=== PATIENT | male | born 1965 | race Asian ===

== ENCOUNTER 2018-06-24 13:12 | Day surgery (SDC) | payer BC ==
--- NOTE | 2018-06-23 20:52 | GHP ---
[f rep st] PREOP HISTORY AND PHYSICAL DATE OF ADMISSION: 06/24/2018 ADMISSION DIAGNOSIS: Ureteral calculus and renal calculus, right side. HISTORY OF PRESENT ILLNESS: This is a 53-year-old gentleman who has had right ureteral and renal sto ross with having a 15 mm renal stone on the right and several 3 mm stones on the right ureter. At the present time, he is admitted for a ureteroscopic manipulation of stones and attempt at treatment of the renal stones ureteroscopically. PAST MEDICAL HISTORY: Bilateral ureteral calculi. PAST SURGICAL HISTORY: Denied. MEDICATIONS: Tamsulosin. ALLERGIES: None. FAMILY HISTORY: Hypertension. SOCIAL HISTORY: Never consumed alcohol. Never smoked. REVIEW OF SYSTEMS: Negative cardiac, respiratory, GI and endocrine. PHYSICAL EXAM: VITAL SIGNS: On admission in the office, blood pressure is 127/84, heart rate 65 and regular, room air oxygen was 95% saturation. HEAD, EARS, EYES, NOSE, THROAT: Normal. CHEST: Mei r. HEART: Regular rate and rhythm. ABDOMEN: Normal. No organomegaly, rebound or guarding. EXTREM ITIES: Lower extremities are normal. LABORATORY DATA: Urinalysis in the office revealed a specific gravity of 1.020 and a urine hemoglobi n +4 without nitrites. At the present time, he is admitted for the above procedure. Indications, complications, options dis cussed. Written and verbal consent were obtained. /[id number]/MODL
--- NOTE | 2018-06-24 07:43 | PDHPUP ---
History & Physical Update H&P update statement: This history and physical update is based on an assessment of the patient which was completed after admission or registration (within 24 hours), but prior to the surgery/procedure. H&P update: H&P reviewed & patient examined, no change in patient's condition since H&P completed
[2018-06-24] MEDS ORDERED: ceFAZolin 2 GM/DEXTROSE 100 ML IV ONE (13:21)
[2018-06-24] MEDS ORDERED: LIDOCAINE 1% 2 ML INJ ID PRN (13:21)
[2018-06-24] MEDS ORDERED: LR 1,000 ML IV ONE (13:21)
--- NOTE | 2018-06-24 13:41 | PDANEPAE ---
ANE History of Present Illness right ureteral stones and kidney stone. here for lithotripsy ANE Past Medical History - Cardiovascular History Hx Hypertension: No Hx Arrhythmias: No Hx Chest Pain: No Hx Coronary Artery / Peripheral Vascular Disease: No Hx CHF / Valvular Disease: No Hx Palpitations: No - Pulmonary History Hx COPD: No Hx Asthma/Reactive Airway Disease: No Hx Recent Upper Respiratory Infection: No Hx Oxygen in Use at Home: No Hx Sleep Apnea: No Sleep Apnea Screening Result - Last Documented: Negative - Neurologic History Hx Cerebrovascular Accident: No Hx Seizures: No Hx Dementia: No - Endocrine History Hx Diabetes: No - Renal History Hx Renal Disorders: No Renal History Comment: kidney stones - Liver History Hx Hepatic Disorders: No - Neurological & Psychiatric Hx Hx Neurological and Psychiatric Disorders: No - Cancer History Hx Cancer: No - Congenital Disorder History Hx Congenital Disorders: No - GI History Hx Gastrointestinal Disorders: No - Chronic Pain History Chronic Pain: No - Surgical History Prior Surgeries: colonoscopy 2017 ANE Review of Systems Review of Systems: - Exercise capacity METS (RN): 6 METS ANE Patient History - Allergies Allergies/Adverse Reactions: No Known Allergies Allergy (Unverified 06/23/18 16:55) - Home Medications Home Medications: Tamsulosin HCl 06/23/18 [Last Taken Unknown] - Smoking Hx Smoking Status: Never smoked - Family Anes Hx Family Hx Anesthesia Complications: none ANE Labs/Vital Signs - Vital Signs Height: 180.34 cm Weight: 90.718 kg ANE Physical Exam - Airway Neck exam: FROM Mallampati Score: Class 1 Mouth exam: normal dental/mouth exam - Pulmonary Pulmonary: no respiratory distress, no rales or rhonchi - Cardiovascular Cardiovascular: regular rate and rhythym, no murmur, rub, or gallop - ASA Status ASA Status: II ANE Anesthesia Plan Anesthesia Plan: GA w LMA Total IV Anesthesia: No
--- NOTE | 2018-06-24 13:42 | POSTOPPROG ---
Post Op Note Date of Operation: 06/24/18 (dictated) Surgeon: Shiv Cota Anesthesiologist: Raghu Anesthesia: GET(General Endotracheal) Pre-op Diagnosis: rt stones Procedure: ureteroscopy for ureteral and renal stones Inf/Abcess present in the surg proc area at time of surgery?: No EBL: Minimal Drains: Other (stent and hallman) Specimen(s): stone fragments for analysis
[2018-06-24] MEDS ORDERED: MIDAZOLAM 2 MG/2 ML VIAL IVP ONE (13:43)
[2018-06-24] MEDS ORDERED: LIDOCAINE 2% JELLY 20 ML (UROJECT) ONE (13:45)
[2018-06-24] MEDS ORDERED: IOPAMIDOL (ISOVUE-M 300) 15 ML VIAL ONE (13:46)
[2018-06-24] MEDS ORDERED: fentaNYL 100 MCG/2 ML INJ ONE (14:12)
[2018-06-24] MEDS ORDERED: LIDOCAINE 2% 100 MG/5 ML SYR ONE (14:12)
[2018-06-24] MEDS ORDERED: PROPOFOL 200 MG/20 ML VIAL ONE ×2 (14:13→15:58)
[2018-06-24] MEDS ORDERED: MEPERIDINE 25 MG/0.5 ML AMP IVP PRN (14:56)
[2018-06-24] MEDS ORDERED: LR 500 ML IV PRN (14:56)
[2018-06-24] MEDS ORDERED: fentaNYL 100 MCG/2 ML INJ IVP PRN (14:56)
[2018-06-24] MEDS ORDERED: PROMETHAZINE HCL 25 MG/ML INJ IVP PRN (14:56)
[2018-06-24] MEDS ORDERED: METOCLOPRAMIDE 10 MG/2 ML VIAL IVP PRN (14:56)
[2018-06-24] MEDS ORDERED: HYDROmorphONE/DILAUDID 1 MG/ML INJ IVP PRN (14:56)
[2018-06-24] MEDS ORDERED: ONDANSETRON 4 MG/2 ML VIAL IVP PRN (14:56)
[2018-06-24] MEDS ORDERED: HYDROCODONE/APAP 5/325 TAB PO PRN (14:56)
[2018-06-24] MEDS ORDERED: DIAZEPAM 10 MG/2 ML SYR IVP PRN (14:56)
[2018-06-24] MEDS ORDERED: NALOXONE HCL 0.4 MG/ML INJ IVP PRN (14:56)
--- NOTE | 2018-06-24 15:48 | POSTANESTH ---
Post Anesthetic Evaluation Cardiovascular Status: Normal, Stable Respiratory Status: Normal, Stable Level of Consciousness/Mental Status: Can Participate in Eval, Moderately Sleepy Pain Control: Adequate, Prn Tx Ordered Nausea/Vomiting Control: Adequate, Prn Tx Ordered Complications Possibly Related to Anesthesia: None Noted
[2018-06-24 17:39] VITALS: BP 122/86
--- NOTE | 2018-06-24 19:10 | GOP ---
[f rep st] OPERATIVE REPORT DATE OF OPERATION: 06/24/2018 SURGEON: Shiv Cota MD ANESTHESIA: General anesthesia. ANESTHESIOLOGIST: Stephane Krishnamurthy DO. PREOPERATIVE DIAGNOSIS: Ureterolithiasis and nephrolithiasis. POSTOPERATIVE DIAGNOSIS: Ureterolithiasis and nephrolithiasis with hydronephrosis. PROCEDURE PERFORMED: Cystoscopy, retrograde ureteropyelogram and ureteroscopy with holmium laser of the ureteral stone and then nephroscopy with holmium laser lithotripsy of a renal stone, and placemen t of a double-J ureteral stent under fluoroscopy. FINDINGS: DESCRIPTION OF PROCEDURE: After undergoing general anesthesia and being prepped and draped in normal sterile fashion in the dorsal lithotomy position, appropriate time-out and identifying the patient a nd the operative site, retrograde ureteral pyelogram revealed the 3 calculi as identified. I dilated the intramural ureter and extracted the first stone distally and then passed the ureteral access she ath up to the mid ureteral stone, lasered that into fragments, extracted that and then I passed the u reteral access sheath up just below the renal pelvis and then passed the flexible scope up. The larg e stone was identified and he had 2 small stones that were adhered to the papilla. I fragmented the large stone up to the point where I was not able to see because of the inflammatory reaction of the r enal pelvis from his obstruction of the stones and could not get good visualization to complete the p rocess and so I elected, at that point, to place a ureteral stent that curled in the renal pelvis, cu rled in the bladder and will have him discharged home, see him in a week with a KUB and at that point , assess whether we need further treatment of his stones. His stones appear to be calcium oxalate in nature and fragments sent for analysis. No complications. The patient will be discharged home. I did put a Uro-Jet in the urethra and put a Robertson catheter in. We will leave that in and pull it ketty dennis to his discharge. /[id number]/MODL
== END 2018-06-24 17:40 | disposition home or self-care (01) ==
LOC: FSGY 13:12
PROVIDERS: ATTEND Specialist
PROC: 0TF68ZZ Fragmentation in Right Ureter, Via Natural or Artificial Opening Endoscopic (ICD-10-PCS; principal; 2018-06-24 14:30)
PROC: 0TC38ZZ Extirpation of Matter from Right Kidney Pelvis, Via Natural or Artificial Opening Endoscopic (ICD-10-PCS; principal; 2018-06-24 14:30)
DX: N20.2 Calculus of kidney with calculus of ureter (principal)
CPT/HCPCS: 52356; 76000; C1758; C1769; C1894; 82365-90; C2625; J0690; J2001; J2250; J2704; J3010; Q9967

== ENCOUNTER → 2018-07-05 | Outpatient (CLI) | payer BC | LOC: FIMAGING 09:46 | PROVIDERS: ATTEND Specialist | DX: Z96.0 Presence of urogenital implants (principal) ==

== ENCOUNTER → 2018-07-12 | Outpatient (CLI) | payer BC | LOC: FIMAGING 14:06 | PROVIDERS: ATTEND Specialist | DX: N20.0 Calculus of kidney (principal) ==